=== PATIENT | male | born 1960 | race Hispanic/Latino ===

== ENCOUNTER 2019-12-25 21:58 | Inpatient (IN) | payer MEDICARE ==
[~2019-12-25] VITALS: Ht 175.3 cm; Wt 95.4 kg
[~2019-12-25 21:58] MED LIST: LEVOFLOXACIN250 MG PO; PREDNISONE20 MG PO
[2019-12-25] MEDS ORDERED: ACETAMINOPHEN 325 MG TAB PO ONE (22:15)
[2019-12-25 22:23] LABS: BASOPHILS % 0.2 % (0.0-1.0); EOSINOPHILS # (AUTO) 0.2 (0.0-0.4); EOSINOPHILS % 1.2 % (0.0-6.0); HEMATOCRIT 45.4 % (38.2-49.6); HEMOGLOBIN 15.1 g/dL (14.0-18.0); LYMPHOCYTES # (AUTO) 1.7 (1.0-3.2); LYMPHOCYTES % 10.7 % (18.0-39.1); MEAN CORPUSCULAR HEMOGLOBIN 28.5 pg (28-32); MEAN CORPUSCULAR HGB CONC 33.3 g/dL (31-35); MEAN CORPUSCULAR VOLUME 85.7 fL (81-99); MONOCYTES # (AUTO) 0.9 (0.2-0.8); MONOCYTES % 5.3 % (4.4-11.3); NEUTROPHILS # (AUTO) 13.2 (2.1-6.9); NEUTROPHILS % 81.9 % (38.7-80.0); PLATELET COUNT 290 x10e3/uL (140-360)
--- NOTE | 2019-12-25 22:25 | Emergency Department Note ---
History of Present Illnes History of Present Illness Chief Complaint: COVID PUI History of Present Illness This is a 59 year old male Chief Complaint Comment 59 Y/O MALE PT AAOX3 PRESENTS TO THE ER C/O SOB, FEVER/CHILLS, COUGH AND MIDSTERNAL CP ONSET LAST TUESDAY; PT TESTED POSITIVE FOR COVID ON 12/08/19; LAST DOSE OF TYLENOL AT 0845 THIS AM; PT'S DAUGHTER STATES PT HAS BEEN HAVING DIFFICULTY TALKING IN COMPLETE SENTENCES D/T SOB; PT UZBEK SPEAKING ONLY; DAUGHTER REPORTS SPO2 AT HOME 92- 93% RA. Historian: Patient Arrival Mode: Car History limited by: language barrier In Home Nanny Required: Yes Onset (how long ago): week(s) (2) Location: Lungs Quality: SoB Radiation: Reports non-radiation Severity: moderate Onset quality: gradual Duration (how long): week(s) (2) Timing of current episode: constant Progression: worsening Chronicity: new Context: Reports recent illness (COVID); Denies recent surgery Relieving factors: none Exacerbating factors: none Associated symptoms: Reports denies other symptoms, Reports cough, Reports fever/chills Treatments prior to arrival: none Past Medical/Family History Physician Review I have reviewed the patient's past medical and family history. Any updates have been documented here. Past Medical History Recent Fever: Yes Clinical Suspicion of Infectio: Yes New/Unexplained Change in Ment: No Past Medical History: Hypertension, Diabetes, Hyperlipedemia Other Surgery: LT ARM SX Review of Systems Review of Systems Constitutional: Reports no symptoms EENTM: Reports no symptoms Cardiovascular: Reports no symptoms Respiratory: Reports as per HPI, Reports cough, Reports dyspnea Gastrointestinal: Reports no symptoms Genitourinary: Reports no symptoms Musculoskeletal: Reports no symptoms Integumentary: Reports no symptoms Neurological: Reports no symptoms Psychological: Reports no symptoms Endocrine: Reports no symptoms Hematological/Lymphatic: Reports no symptoms Physical Exam Related Data Allergies: Coded Allergies: No Known Allergies (Unverified , 12/25/19) Triage Vital Signs Vital Signs Date Time Temp Pulse Resp B/P (MAP) Pulse Ox O2 Delivery O2 Flow Rate FiO2 12/25/19 22:06 103.3 132 28 149/85 95 Room Air Vital signs reviewed: Yes Physical Exam CONSTITUTIONAL Constitutional: Present well-developed, Present well-nourished, Present ill appearing HENT HENT: Present normocephalic, Present atraumatic, Present oropharynx clear/moist, Present nose normal HENT L/R: Present left ext ear normal, Present right ext ear normal EYES Eyes: Reports PERRL, Reports conjunctivae normal NECK Neck: Present ROM normal PULMONARY Pulmonary: Present effort normal, Present breath sounds normal CARDIOVASCULAR Cardiovascular: Present regular rhythm, Present heart sounds normal, Present capillary refill normal, Present normal rate GASTROINTESTINAL Abdominal: Present soft, Present nontender, Present bowel sounds normal GENITOURINARY Genitourinary: Present exam deferred SKIN Skin: Present warm, Present dry MUSCULOSKELETAL Musculoskeletal: Present ROM normal NEUROLOGICAL Neurological: Present alert, Present oriented x 3, Present no gross motor or sensory deficits PSYCHOLOGICAL Psychological: Present mood/affect normal, Present judgement normal Results Laboratory Lab results reviewed: Yes Imaging Imaging results reviewed: Yes Diagnostics Tests Diagnostic test(s) reviewed: Yes Procedures 12 Lead ECG Interpretation ECG Interpretation : In Home Nanny: Interpreted by ED physician Date: Dec 25, 2019 Rhythm: sinus tachycardia QRS axis: normal ST segments normal: Yes T waves normal: Yes Clinical Impression: non-specific ECG Assessment & Plan Medical Decision Making MDM 59-year-old male presents for shortness of breath and cough. He is recently diagnosed with COVID-19. Symptoms of been worsening over the last week and a half. Examination shows moderate tachycardia, tachypnea, fever to 103. Initial differential includes Crohn virus versus pneumonia versus other viral upper respiratory infection. Suspect worsening coronavirus infection and do not suspect sepsis at this time. He was given. Antibiotic treatment with Rocephin and azithromycin as well as 10 mg of Decadron. He was discussed with Dr. Hager who is agreed to admit for COVID 19. Patient is appropriate for transfer to floor. 1L NS given as well. Reassessment Reassessment time: 23:44 Reassessment VS improved after 1L NS Assessment & Plan Final Impression: (1) COVID-19 Depart Disposition: ADMITTED Last Vital Signs Date Time Temp Pulse Resp B/P (MAP) Pulse Ox O2 Delivery O2 Flow Rate FiO2 12/25/19 22:06 103.3 132 28 149/85 95 Room Air Medications in the ED Acetaminophen 975 mg ONCE ONCE PO ; Start 12/25/19 at 22:15; Stop 12/25/19 at 22:17; Status DC LIMA LOTT MD Dec 25, 2019 22:24
[2019-12-25] MEDS ORDERED: DEXAMETHASONE SOD PHOS 10 MG/1 ML VIAL IV ONE (22:30)
[2019-12-25] MEDS ORDERED: SODIUM CHLORIDE 0.9% 1000ML 1,000 ML IV ONE (22:30)
[2019-12-25 22:34] LABS: INR 0.94
[2019-12-25 22:35] LABS: PARTIAL THROMBOPLASTIN TIME 27.5 seconds (23.8-35.5)
[2019-12-25 22:42] LABS: ALANINE AMINOTRANSFERASE 74 IU/L (0-55); ALBUMIN 4.5 g/dL (3.5-5.0); ALBUMIN/GLOBULIN RATIO 1.3 (0.8-2.0); ALKALINE PHOSPHATASE 84 IU/L (40-150); ANION GAP 17.8 mmol/L (8-16); BLOOD UREA NITROGEN 12 mg/dL (7-26); BUN/CREATININE RATIO 11 (6-25); CALCIUM 8.4 mg/dL (8.4-10.2); CARBON DIOXIDE 25 mmol/L (22-29); CHLORIDE 98 mmol/L (98-107); CREATINE KINASE 164 IU/L (30-200); CREATININE, SERUM 1.05 mg/dL (0.72-1.25); EST GLOMERULAR FILTRATION RATE > 60 ML/MIN (60-); GLUCOSE 156 mg/dL (74-118); POTASSIUM 3.8 mmol/L (3.5-5.1); SODIUM 137 mmol/L (136-145)
--- NOTE | 2019-12-25 22:44 | NUR ---
FEEDER ASSOCIATE AT BEDSIDE OR PORTABLE CXR.
[2019-12-25 22:46] LABS: BILIRUBIN,URINE NEGATIVE (NEGATIVE); CLARITY,URINE SL CLOUDY (CLEAR); COLOR,URINE YELLOW (YELLOW); KETONES,URINE TRACE (NEGATIVE); LEUKOCYTE ESTERASE ,URINE NEGATIVE (NEGATIVE); NITRITE,URINE NEGATIVE (NEGATIVE); PROTEIN,URINE DIPSTICK 1+ (NEGATIVE); URINE UROBILINOGEN 1 mg/dL (0.2 - 1)
[2019-12-25 22:56] LABS: BACTERIA,URINE FEW /HPF; EPITHELIAL CELLS,URINE FEW /LPF; RBC,URINE 0-5 /HPF (0-5); WBC,URINE (MAN) 0-5 /HPF (0-5)
[2019-12-25] MEDS ORDERED: AZITHROMYCIN 500MG/NS 250 ML 250 ML IV STA (23:07)
[2019-12-25] MEDS ORDERED: CEFTRIAXONE SOD 1 GM/NS 50 ML 50 ML IV ONE (23:15)
--- NOTE | 2019-12-25 23:49 | Diagnostic Imaging Report ---
EXAMINATION: CHEST SINGLE (PORTABLE) INDICATION: ^Y ^SOB ^[id number] ^[id number] COMPARISON: None FINDINGS: AP view TUBES and LINES: None. LUNGS: Lungs are well inflated. Left lower lung field airspace opacities. Mild central vascular congestion. PLEURA: No pleural effusion or pneumothorax. HEART AND MEDIASTINUM: The cardiomediastinal silhouette is enlarged. Aorta is tortuous. BONES AND SOFT TISSUES: No acute osseous lesion. Soft tissues are unremarkable. UPPER ABDOMEN: No free air under the diaphragm. IMPRESSION: Left lower lung field airspace opacities, concerning for developing pneumonia. Signed by: Dr. Elder Smith MD on 12/25/2019 11:46 PM
[2019-12-26] VITALS (10 sets, daily range): BP systolic 127–140; BP diastolic 67–97
--- NOTE | 2019-12-26 00:54 | NUR ---
Patient arrived to unit from ER via stretcher, respirations even and unlabored on 2L NC. Patient awake and resting in bed, no s/s of distress at this time. Tele showing SR in 90s. O2 extension tubing provided d/t SOB on exertion when ambulating to restroom. Bed locked and in lowest position, HOB in semi-Lim's position, side rails upx2, call light placed within reach. Patient instructed to call for assistance if needed, verbalized understanding. All safety measures in place.
--- NOTE | 2019-12-26 01:03 | NUR ---
Per patient okay to contact daughters and share medical information. Spoke to daughter Tyson on phone. Provided updates on patient's status and obtained list of home medications.
[2019-12-26] MEDS ORDERED: ASPIRIN81 MG PO (01:09)
[2019-12-26] MEDS ORDERED: LO-DOSE ASPIRIN81 MG PO (01:11)
[2019-12-26] MEDS ORDERED: CRESTOR10 MG PO (01:16)
[2019-12-26] MEDS ORDERED: VITAMIN C1000 MG PO (01:16)
[2019-12-26] MEDS ORDERED: METFORMIN HCL500 M1 PO (01:16)
[2019-12-26] MEDS ORDERED: VITAMIN D350 MCG PO (01:16)
[2019-12-26] MEDS ORDERED: Levalbuterol INH (01:16)
[2019-12-26] MEDS ORDERED: OLMESARTAN MEDOX5 MG PO (01:16)
[2019-12-26 04:54] LABS: BASOPHILS % 0.2 % (0.0-1.0); HEMATOCRIT 43.9 % (38.2-49.6); HEMOGLOBIN 14.5 g/dL (14.0-18.0); LYMPHOCYTES % 6.3 % (18.0-39.1); MEAN CORPUSCULAR HEMOGLOBIN 28.4 pg (28-32); MEAN CORPUSCULAR VOLUME 86.1 fL (81-99); MONOCYTES # (AUTO) 0.2 (0.2-0.8); MONOCYTES % 1.3 % (4.4-11.3); NEUTROPHILS # (AUTO) 14.6 (2.1-6.9); NEUTROPHILS % 91.4 % (38.7-80.0); PLATELET COUNT 301 x10e3/uL (140-360)
[2019-12-26 05:11] LABS: ANION GAP 17.5 mmol/L (8-16); BLOOD UREA NITROGEN 12 mg/dL (7-26); BUN/CREATININE RATIO 13 (6-25); CALCIUM 8.1 mg/dL (8.4-10.2); CARBON DIOXIDE 22 mmol/L (22-29); CHLORIDE 103 mmol/L (98-107); CREATININE, SERUM 0.94 mg/dL (0.72-1.25); EST GLOMERULAR FILTRATION RATE > 60 ML/MIN (60-); GLUCOSE 188 mg/dL (74-118); POTASSIUM 4.5 mmol/L (3.5-5.1); SODIUM 138 mmol/L (136-145)
--- NOTE | 2019-12-26 06:17 | NUR ---
Routine consult called to Dr. Argueta's answering service (Crystal).
[2019-12-26] MEDS ORDERED: OLMESARTAN MEDOXOMIL 5 MG TABLET PO SCH (09:00)
[2019-12-26] MEDS ORDERED: DEXAMETHASONE 4 MG TAB PO SCH ×2 (09:00)
--- NOTE | 2019-12-26 09:03 | NUR ---
INFECTIOUS DISEASE CONSULT NOTE DR. JOSÉ SARGENT HPI: This is a very pleasant 59 year old male with a PMH of HTN, Obesity, T2DM, and HLD. The patient was first symptomatic with COVID on 12/14. The patient went to his family doctor who gave him Levaquin and steroids. The patient subsequently became worse and arrived to the ED. He was admitted with COVID. He was slightly hypoxic, so he was placed on 2LPM n/c ROS: +Fatigue +SOB ALL SYSTEMS REVIEWED AND NOTED UNLESS DOCUMENTED. PMH: per HPI Past Surgical hx: per chart Social Hx: denies smoker, drinking PHYSICAL EXAM: VS per chart GENERAL: awake, alert, pleasant HEENT: normocephalic, atraumatic CV: s1 s2 without s3, s4 CHEST: rhonchi, wheezing ABD: soft, non-tender EXT: moves all, no joint swelling NEURO: alert, awake, no abnormalities LABS: reviewed RADIOLOGY: reviewed IMPRESSION: COVID 19 PNA Hypoxia T2DM HTN Obesity HLD PLAN: RMSV, COVID protocol Get CTA Decadron 6mg x10 days diabetic control RMSV was discussed, the risks and benefits were explained. The pt understands that it is a drug approved by the FDA for emergency use. The patient agreed to the terms and conditions. All questions were answered and handout was given
[2019-12-26] MEDS ORDERED: ZOLPIDEM TARTRATE 5 MG TAB PO PRN (10:30)
[2019-12-26] MEDS ORDERED: ACETAMINOPHEN 325 MG TAB PO PRN ×2 (10:30)
[2019-12-26 10:35] LABS: MAGNESIUM 1.7 MG/DL (1.3-2.1); PHOSPHORUS 3.2 MG/DL (2.3-4.7)
[2019-12-26 10:45] LABS: CALCIUM IONIZED 1.1 mmol/L (1.09-1.30)
[2019-12-26] MEDS ORDERED: IOPAMIDOL 370 MG/ML 200 ML INFUS..BTL INJ ONE (10:56)
[2019-12-26] MEDS ORDERED: SODIUM CHLORIDE 0.9% 50ML 50 ML ONE (10:56)
--- NOTE | 2019-12-26 11:17 | Consultation ---
DATE OF CONSULTATION: Pulmonary Critical Care Consultation CHIEF COMPLAINT: Fevers and some chest discomfort. HISTORY OF PRESENT ILLNESS: The patient is a 59-year-old man. He has a history of diabetes, but does not require insulin. About 12 days ago, he started having malaise and sinus congestion. He had some fevers as well. He improved, but then started to worsen again several days ago. He noted some recurrent fever and cough. He also had some atypical chest pain. PAST SURGICAL HISTORY: Status post accident to the left arm that required surgical repair. PAST MEDICAL HISTORY: 1. Diabetes. 2. Hypertension. 3. Hypercholesterolemia. SOCIAL HISTORY: The patient's daughter works at our hospital as a nurse. He is not an active smoker or drinker. FAMILY HISTORY: Noncontributory. ALLERGIES: NO KNOWN DRUG ALLERGIES. REVIEW OF SYSTEMS: The patient did have some fevers. He has no headache. He has no neck pain. He is not complaining of any chest pain. He has some dyspnea. He has no abdominal pain. There is no nausea or vomiting. He has no leg swelling. PHYSICAL EXAMINATION: VITAL SIGNS: The blood pressure is 127/87, saturation is 98% on 2 L and the pulse is 85. Respiratory rate is 18. HEENT: Shows no facial swelling or erythema. LYMPHATIC: Shows no submandibular, cervical, or supraclavicular adenopathy. CARDIAC: Reveals a regular rate and rhythm with normal S1 and S2. LUNGS: Auscultation of lungs reveals rhonchorous breath sounds bilaterally. There is no wheezing. ABDOMEN: Soft and nontender. There is no rebound or guarding. EXTREMITIES: Shows no leg edema or calf tenderness. There is no cyanosis or clubbing. SKIN: Shows no rashes. NEUROLOGICAL: Shows no focal abnormalities. LABORATORY DATA: White blood cell count is 15.9, hemoglobin is 14.5, and the platelet count is 301. BUN to creatinine ratio is normal. The other electrolytes are within normal limits. RADIOGRAPHIC DATA: Shows lower left lung opacities concerning for developing pneumonia. IMPRESSION: 1. COVID-19 and viral pneumonia. 2. Diabetes. 3. Hypertension. PLAN: 1. Continue Rocephin and Zithromax. 2. The patient will be started on remdesivir. 3. Await CT scan of chest with PE protocol. 4. Tylenol as needed. 5. Cough suppressants as needed. MD KEISHA Perez/RUDY /[id number]
--- NOTE | 2019-12-26 12:10 | NUR ---
Infectious disease consultation Patient seen and examined chart reviewed and discussed with the medical team This is a very pleasant 59 male with obesity and diabetes mellitus Comes in with fever and chills and shortness of breath Fevers and some chest discomfort. HISTORY OF PRESENT ILLNESS: The patient is a 59-year-old man. He has a history of diabetes, but does not require insulin. About 12 days ago, he started having malaise and sinus congestion. He had some fevers as well. He improved, but then started to worsen again several days ago. He noted some recurrent fever and cough. He also had some atypical chest pain. PAST SURGICAL HISTORY: Status post accident to the left arm that required surgical repair. PAST MEDICAL HISTORY: 1. Diabetes. 2. Hypertension. 3. Hypercholesterolemia. SOCIAL HISTORY: The patient's daughter works at our hospital as a nurse. He is not an active smoker or drinker. FAMILY HISTORY: Noncontributory. ALLERGIES: NO KNOWN DRUG ALLERGIES. REVIEW OF SYSTEMS:otherwise negative The patient did have some fevers. He has no headache. He has no neck pain. He is not complaining of any chest pain. He has some dyspnea. He has no abdominal pain. There is no nausea or vomiting. He has no leg swelling. PHYSICAL EXAMINATION: VITAL SIGNS: The blood pressure is 127/87, saturation is 98% on 2 L and the pulse is 85. Respiratory rate is 18. HEENT: Shows no facial swelling or erythema. LYMPHATIC: Shows no submandibular, cervical, or supraclavicular adenopathy. CARDIAC: Reveals a regular rate and rhythm with normal S1 and S2. LUNGS: Auscultation of lungs reveals rhonchorous breath sounds bilaterally. There is no wheezing. ABDOMEN: Soft and nontender. There is no rebound or guarding. EXTREMITIES: Shows no leg edema or calf tenderness. There is no cyanosis or clubbing. SKIN: Shows no rashes. NEUROLOGICAL: Shows no focal abnormalities. LABORATORY DATA: White blood cell count is 15.9, hemoglobin is 14.5, and the platelet count is 301. BUN to creatinine ratio is normal. The other electrolytes are within normal limits. RADIOGRAPHIC DATA: Shows lower left lung opacities concerning for developing pneumonia. IMPRESSION: 1. COVID-19 and viral pneumonia. 2. Diabetes. 3. Hypertension. Rocephin 1 g daily 5 days azithromycin 500 mg daily for 3 days dexamethasone 6 mg daily for 10 days Lovenox subcu discussed with the patient and the family [facility] still experimental drug fax was given but the patient still willing to take it is aware he can stop at any time
[2019-12-26] MEDS ORDERED: SODIUM CHLORIDE 0.9% 1000ML 1,000 ML ONE (12:32)
[2019-12-26] MEDS: METFORMIN HCL 500 MG TAB CR PO SCH (12:51)
[2019-12-26] MEDS: DEXAMETHASONE 4 MG TAB PO SCH (12:51)
[2019-12-26] MEDS: OLMESARTAN MEDOXOMIL 5 MG TABLET PO SCH (12:51)
--- NOTE | 2019-12-26 13:07 | Diagnostic Imaging Report ---
EXAM: CT Chest WITH contrast- Pulmonary Embolism Protocol INDICATION: Shortness of breath COMPARISON: Chest radiograph 12/25/2019 TECHNIQUE: Chest was scanned utilizing a multidetector helical scanner from the lung apex through the level of the diaphragm after administration of IV contrast. Thin section reconstructions were obtained with special concentration on the pulmonary arteries. Coronal and sagittal reformations were obtained. Pulmonary embolism protocol was performed. IV CONTRAST: 100 cc of Isovue 370 RADIATION DOSE: Total DLP: 415 mGy*cm Dose modulation, iterative reconstruction, and/or weight based adjustment of the mA/kV was utilized to reduce the radiation dose to as low as reasonably achievable. COMPLICATIONS: None FINDINGS: Images are substantially degraded by patient coughing and respiratory motion artifact. LINES/ TUBES: None. PULMONARY ARTERIES: The main pulmonary artery and right and left main pulmonary arteries are well-opacified and demonstrate no filling defects to suggest pulmonary embolism. Evaluation of the segmental and subsegmental pulmonary arteries is severely limited by patient respiratory motion artifact. An apparent filling defect in the posterior segment left upper lobe pulmonary artery may represent a segmental pulmonary embolus. The main pulmonary artery is not enlarged and measures up to 2.2 cm. No right heart strain. LUNGS AND AIRWAYS: The central airways are patent. Bilateral multifocal areas of groundglass and interstitial opacities in a predominantly lower lung and peripheral distribution. Mild bilateral lower lobe dependent subsegmental atelectasis. PLEURA: The pleural spaces are clear. HEART AND MEDIASTINUM: The thyroid gland is normal. No mediastinal, hilar or axillary lymphadenopathy. The heart is normal in size.. There is no pericardial effusion. UPPER ABDOMEN: No acute findings in the upper abdomen. BONES: No acute osseous injury. No suspicious lytic or blastic lesions. SOFT TISSUES: Unremarkable. IMPRESSION: No large central pulmonary embolism. Evaluation of the segmental and subsegmental pulmonary arteries is severely limited by patient respiratory motion artifact and coughing. An apparent filling defect in the posterior segment left upper lobe pulmonary artery may represent a small segmental pulmonary embolus versus artifact. No dilation of the main pulmonary artery. No right heart strain. Multifocal bilateral lower lung and peripheral predominant groundglass opacities and interstitial opacities consistent with provided history of viral pneumonia. Signed by: Mellisa Parsons MD on 12/26/2019 1:04 PM
--- NOTE | 2019-12-26 13:34 | History and Physical ---
HISTORY OF PRESENT ILLNESS: Mr. Garcia is a 59-year-old male with history of diabetes, hypertension, hyperlipidemia, who last week tested positive for COVID. He was having fever and cough and he was given azithromycin. Yesterday apparently, the patient got short of breath and the cough got worse, so they decided to bring him to the emergency room. PAST MEDICAL HISTORY: He has diabetes, hypertension, hyperlipidemia. ALLERGIES: NO KNOWN DRUG ALLERGIES. PAST SURGICAL HISTORY: He had left arm surgery. SOCIAL HISTORY: He lives at home with his family. He does not smoke and he does not drink. PHYSICAL EXAMINATION: VITAL SIGNS: Temperature 97.9, blood pressure 127/87. The patient is on nasal cannula, oxygen is 98, respiratory rate is 18, pulse is 85. LABORATORY DATA: On the blood work, white count is 15.92, hemoglobin 14.5, hematocrit 43.9, potassium 4.5, creatinine is 0.94, glucose is 188. Lactic acid went down to 1.6. COVID test came back positive. Urine cultures and blood cultures are pending. Chest x-ray shows left lower lung field airspace opacity concerning for pneumonia. ASSESSMENT: 1. COVID positive. 2. COVID pneumonia. 3. Diabetes type 2 with hyperglycemia. 4. Hypertension. 5. Hyperlipidemia. PLAN: At the present time is the patient was admitted in the COVID unit. He already was seen by Dr. Argueta. He was started on azithromycin, Rocephin and remdesivir He is also on Lovenox 60 mg subcu daily, and he is on dexamethasone 6 mg p.o. daily. We will continue to monitor respiratory status. Pulmonary consult with Dr. Cantu was also placed for him. All this was discussed in detail with the daughter and the patient. All questions were answered to satisfaction. MD CLARK Ball/MODL /[id number]
[2019-12-26] MEDS ORDERED: REMDESIVIR 200MG/NS 100ML 200 MG in SODIUM CHLORIDE 0.9% 100 ML 100 ML IV ONE (14:00)
[2019-12-26] MEDS: ENOXAPARIN SOD INJ 60 MG/0.6 ML SYR SC SCH (17:37)
[2019-12-26] MEDS: HYDROCODONE/CHLORPHENIRAMINE 5 ML LIQCR PO PRN (18:01)
[2019-12-26] MEDS: CRESTOR 10MG PO SCH (20:19)
[2019-12-26] MEDS ORDERED: CRESTOR 10MG PO SCH (21:00)
[2019-12-26] MEDS: AZITHROMYCIN 500MG/NS 250 ML 250 ML IV SCH (23:27)
[2019-12-27] VITALS (7 sets, daily range): BP systolic 119–141; BP diastolic 84–94
[2019-12-27] MEDS: CEFTRIAXONE SOD 2 GM/NS 100 ML 100 ML IV SCH ×2 (00:23→22:06)
[2019-12-27] MEDS: HYDROCODONE/CHLORPHENIRAMINE 5 ML LIQCR PO PRN (05:27)
[2019-12-27] MEDS: METFORMIN HCL 500 MG TAB CR PO SCH (08:47)
[2019-12-27] MEDS: DEXAMETHASONE 4 MG TAB PO SCH (08:47)
[2019-12-27] MEDS: OLMESARTAN MEDOXOMIL 5 MG TABLET PO SCH (08:47)
--- NOTE | 2019-12-27 11:03 | Progress Note ---
DATE: SUBJECTIVE: The patient feels better. He still has some cough and some dyspnea with exertion. He is receiving remdesivir. PHYSICAL EXAMINATION: VITAL SIGNS: The patient is afebrile. The blood pressure is 119/84 and saturation is 96% on 2 L. The pulse is 60. HEENT: Shows no facial swelling or erythema. LYMPHATIC: Shows no submandibular, cervical, or supraclavicular adenopathy. CARDIAC: Reveals regular rate and rhythm with normal S1 and S2. LUNGS: Auscultation of lungs reveals rhonchorous breath sounds bilaterally. There is no wheezing. ABDOMEN: Soft and nontender. There is no rebound or guarding. EXTREMITIES: Show no leg edema or calf tenderness. There is no cyanosis or clubbing. SKIN: Shows no rashes. NEUROLOGICAL: Shows no focal abnormalities. LABORATORY DATA: The BUN to creatinine ratio is 12 to 0.94, and the other electrolytes are within normal limits. White blood cell count is 15.9, hemoglobin is 14.5, and the platelet count is 301. IMPRESSION: 1. COVID-19 and viral pneumonia. 2. Diabetes. 3. Hypertension. PLAN: 1. Complete remdesivir. 2. Continue current antibiotics. 3. Cough suppressant as needed. Ran Cantu MD Ifeoma/RUDY /[id number]
--- NOTE | 2019-12-27 12:24 | Progress Note ---
DATE: 12/27/2019 SUBJECTIVE: Mr. Enriquez is a 59-year-old man with history of diabetes, hypertension, hyperlipidemia, came to the emergency room after 12 days history of nasal congestion and cough that was treated as a sinus infection and allergies and then the patient developed fever, cough, and a family member was COVID positive, so he decided to come to the emergency room where he was found to have multifocal pneumonia and he is COVID positive. PHYSICAL EXAMINATION: GENERAL: Today, the patient states he is feeling better. He is on O2 nasal cannula. VITAL SIGNS: Temperature is 97.5, blood pressure 119/84, O2 saturation 96%, respiratory rate 18, heart rate is 60. The patient is still short of breath, but he is feeling better than yesterday. LABORATORY DATA: On the blood work, white count is 15.92, hemoglobin is 14.4, hematocrit is 43.9. COVID came back positive. Urine culture and blood culture so far negative. Chest CT showed multifocal bilateral lower lung, peripheral ground glass opacities. ASSESSMENT: 1. COVID positive. 2. COVID pneumonia. 3. Diabetes type 2 with hyperglycemia. 4. Hypertension. 5. Hyperlipidemia. PLAN: At the present time, the patient remains in COVID unit. Infectious Disease and Pulmonary are following the patient. He is on dexamethasone, metformin, Rocephin, azithromycin, Crestor, Lovenox, remdesivir, zolpidem and acetaminophen. Continue present treatment. The overall prognosis of the patient remains guarded. All this was discussed with the patient. All questions were answered to satisfaction. MD CLARK Ball/RUDY /[id number]
[2019-12-27] MEDS: REMDESIVIR 100MG/NS 100ML 100 MG in SODIUM CHLORIDE 0.9% 100 ML 100 ML IV SCH (16:01)
[2019-12-27] MEDS: ENOXAPARIN SOD INJ 60 MG/0.6 ML SYR SC SCH (17:36)
--- NOTE | 2019-12-27 20:03 | Progress Note ---
DATE: SUBJECTIVE: The patient is seen and evaluated. Available labs and notes reviewed. Discussed with Dr. Argueta. REVIEW OF SYSTEMS: Still with some cough and chest discomfort, but no diarrhea. Appetite is good. No shortness of breath. PHYSICAL EXAMINATION: VITAL SIGNS: Temperature 97.8, pulse 94, respiration 19, and blood pressure 137/91. GENERAL: Alert and oriented, pleasant, no acute distress. Supine position. Few coughs during my visit with him. CV: S1 and S2. CHEST: Equal expansion. Decreased breath sounds. A few crackles expiratory. ABDOMEN: Soft, obese, and nontender. HEENT: Moist. No pallor. No JVD. The patient is currently on room air. MEDICATIONS: Reviewed. From ID point of view, the patient is on remdesivir, dexamethasone, Rocephin, Zithromax, and Lovenox. LABORATORY STUDIES: White count of 15.92, improved from 16.14, hemoglobin 14.5, and platelet 301. Sodium 138, potassium 4.5, and creatinine 0.94. Serology; coronavirus 12/25 was detected on the PCR. MICROBIOLOGY: Blood and urine culture negative on 12/24. RADIOLOGY STUDIES: CT of the chest on 12/25, showed multifocal bilateral lower lung and peripheral predominant ground-glass opacities and interstitial opacities, consistent with the provided history of viral pneumonia. ASSESSMENT AND PLAN: 1. COVID-19 and viral pneumonia. 2. Diabetes. 3. Hypertension. 4. Obesity. 5. Continue with antibiotics as planned dictated on 12/26/[address] Argueta, which is Rocephin 1 g daily for 5 days, Zithromax 500 mg IV 3 days, dexamethasone 6 mg daily for 10 days, and Lovenox subcutaneous as ordered. The patient was also educated on remdesivir and started on remdesivir. Continue with the treatment, monitor the patient clinically and follow up with the labs. Please refer to chart for more information. The patient is on room air. Dictated by Daniel Tinsley PA-C (Al) [place] Argueta MD /MODL /[id number]
[2019-12-27] MEDS: CRESTOR 10MG PO SCH (20:11)
[2019-12-27] MEDS: AZITHROMYCIN 500MG/NS 250 ML 250 ML IV SCH (23:13)
[2019-12-28] VITALS (12 sets, daily range): BP systolic 110–132; BP diastolic 78–93
--- NOTE | 2019-12-28 06:49 | NUR ---
REPORT GIVEN TO DAYSHIFT NURSE. ALERT AND ORIENTED. RESTING IN BED. NO SIGNS IV INFILTRATION. SR UPX2. BED LOCKED AND IN LOW POSITION. CALL LIGHT WITHIN REACH.
[2019-12-28] MEDS: HYDROCODONE/CHLORPHENIRAMINE 5 ML LIQCR PO PRN (08:02)
[2019-12-28] MEDS: DEXAMETHASONE 4 MG TAB PO SCH (08:10)
[2019-12-28] MEDS: OLMESARTAN MEDOXOMIL 5 MG TABLET PO SCH (08:10)
[2019-12-28] MEDS: METFORMIN HCL 500 MG TAB CR PO SCH (08:10)
--- NOTE | 2019-12-28 10:00 | Progress Note ---
DATE: 12/28/2019 SUBJECTIVE: Mr. Enriquez is a 59-year-old man with history of diabetes, hypertension, hyperlipidemia, and complaining of several days of nasal congestion and cough. He was exposed to COVID then he started developing more cough and shortness of breath, so he decided to come to the emergency room. He was found to have a cough with pneumonia. He is on IV antibiotics and antivirals. PHYSICAL EXAMINATION: GENERAL: The patient states this morning he had a lot of cough, and he was short of breath. VITAL SIGNS: Temperature 98.2, blood pressure 123/93, O2 saturation 94, respiratory rate 18, and pulse is 60. LABORATORY DATA: On the blood work, white count is 15.92, hemoglobin 14.5, hematocrit 43.9, potassium 4.3, sugar 188. COVID came back positive. Urine culture and blood culture so far have been negative. Chest CT shows no large central pulmonary embolus, but he has multifocal bilateral lower lung and peripheral ground-glass opacities. ASSESSMENT: 1. coronavirus disease infection. 2. coronavirus disease pneumonia. 3. Diabetes type 2 with hyperglycemia. 4. Hypertension. 5. Hyperlipidemia. PLAN: At present time is to continue to observe him. He is on IV antibiotics and remdesivir. He is also on Crestor and Lovenox. Continue present management. Continue to monitor respiratory status. Prognosis remains guarded. He is also on ADA diet and sliding scale with insulin. All this was discussed with the patient. All questions were answered to satisfaction. MD CLARK Ball/MODL /[id number]
--- NOTE | 2019-12-28 13:46 | NUR ---
INFECTIOUS DISEASE PROGRESS NOTE DR. JOSÉ SARGENT SUBJECTIVE: The patient is seen and evaluated. Available labs and notes reviewed. Discussed with Dr. Sargent. REVIEW OF SYSTEMS: Still with some cough and chest discomfort Appetite is good. No shortness of breath. ALL 14 POINT ROS NEG UNLESS OTHERWISE NOTED PHYSICAL EXAMINATION: VITAL SIGNS: Temperature 97.8, pulse 94, respiration 19, and blood pressure 137/91. GENERAL: Alert and oriented, pleasant, no acute distress. Supine position. Few coughs during my visit with him. CV: S1 and S2. without s3, s4 CHEST: Equal expansion. Decreased breath sounds. A few crackles expiratory. ABDOMEN: Soft, obese, and nontender. HEENT: Moist. No pallor. No JVD. The patient is currently on room air MEDICATIONS: Reviewed. From ID point of view, the patient is on remdesivir, dexamethasone, Rocephin, Zithromax, and Lovenox. LABORATORY STUDIES: reviewed MICROBIOLOGY: Blood and urine culture negative on 12/24. RADIOLOGY STUDIES: CT of the chest on 12/25, showed multifocal bilateral lower lung and peripheral predominant ground-glass opacities and interstitial opacities, consistent with the provided history of viral pneumonia. ASSESSMENT AND PLAN: 1. COVID-19 and viral pneumonia. 2. Diabetes. 3. Hypertension. 4. Obesity. Rocephin 1 g daily for 5 days Zithromax 500 mg IV 3 days dexamethasone 6 mg daily for 10 days Lovenox subcutaneous RMSV oxygen as needed Barbie Robert MSN, INFORMATION RESOURCES DIRECTOR, AGACNP- José Sargent M.D.
[2019-12-28] MEDS: REMDESIVIR 100MG/NS 100ML 100 MG in SODIUM CHLORIDE 0.9% 100 ML 100 ML IV SCH (13:59)
--- NOTE | 2019-12-28 14:05 | Progress Note ---
DATE: SUBJECTIVE: The patient still has some cough. He is receiving remdesivir. PHYSICAL EXAMINATION: VITAL SIGNS: The patient is afebrile. The blood pressure is 119/90 and saturation is 99% on room air. HEENT: Shows no facial swelling or erythema. LYMPHATIC: Shows no submandibular, cervical, or supraclavicular adenopathy. CARDIAC: Reveals regular rate and rhythm with normal S1 and S2. LUNGS: Auscultation of lungs reveals rhonchi bilaterally. There is no wheezing. ABDOMEN: Soft and nontender. There is no rebound or guarding. EXTREMITIES: Show no leg edema or calf tenderness. There is no cyanosis or clubbing. SKIN: Shows no rashes. LABORATORY DATA: White blood cell count is 15.9, hemoglobin is 14.5, and the platelet count is 301. The BUN to creatinine ratio is 12 to 0.94. The other electrolytes are within normal limits. IMPRESSION: 1. COVID-19 and viral pneumonia. 2. Diabetes. 3. Hypertension. PLAN: 1. Complete remdesivir. 2. Continue Tussionex as needed. 3. Complete current antibiotics. 4. Monitor and control blood sugars. Ran Cantu MD [facility]/RUDY /[id number]
[2019-12-28] MEDS ORDERED: ALBUTEROL SULFATE HFA 8GM INHALATION AEROSOL INH PRN (14:30)
[2019-12-28 14:39] LABS: BASOPHILS % 0.2 % (0.0-1.0); EOSINOPHILS # (AUTO) 1.3 (0.0-0.4); EOSINOPHILS % 7.2 % (0.0-6.0); HEMOGLOBIN 15.6 g/dL (14.0-18.0); LYMPHOCYTES # (AUTO) 1.3 (1.0-3.2); MEAN CORPUSCULAR HEMOGLOBIN 29.1 pg (28-32); MEAN CORPUSCULAR HGB CONC 33.9 g/dL (31-35); MEAN CORPUSCULAR VOLUME 85.7 fL (81-99); MONOCYTES # (AUTO) 0.7 (0.2-0.8); MONOCYTES % 3.7 % (4.4-11.3); NEUTROPHILS # (AUTO) 14.8 (2.1-6.9); PLATELET COUNT 358 x10e3/uL (140-360); RED BLOOD COUNT 5.37 x10e6/uL (4.3-5.7)
[2019-12-28] MEDS: BENZONATATE 100 MG CAP PO SCH ×2 (14:42→20:11)
[2019-12-28 14:59] LABS: ALANINE AMINOTRANSFERASE 96 IU/L (0-55); ALBUMIN 4.2 g/dL (3.5-5.0); ALBUMIN/GLOBULIN RATIO 1.2 (0.8-2.0); ALKALINE PHOSPHATASE 86 IU/L (40-150); ANION GAP 21.1 mmol/L (8-16); BLOOD UREA NITROGEN 24 mg/dL (7-26); BUN/CREATININE RATIO 22 (6-25); CALCIUM 8.6 mg/dL (8.4-10.2); CARBON DIOXIDE 21 mmol/L (22-29); CHLORIDE 99 mmol/L (98-107); CREATININE, SERUM 1.08 mg/dL (0.72-1.25); EST GLOMERULAR FILTRATION RATE > 60 ML/MIN (60-); GLUCOSE 154 mg/dL (74-118); POTASSIUM 4.1 mmol/L (3.5-5.1); SODIUM 137 mmol/L (136-145)
[2019-12-28] MEDS: ENOXAPARIN SOD INJ 60 MG/0.6 ML SYR SC SCH (17:53)
[2019-12-28 19:36] LABS: LYMPHOCYTES % (MANUAL) 1 % (19-48); MONOCYTES % (MANUAL) 3 % (3.4-9.0); NEUTROPHILS % (MANUAL) 96 % (40-74)
[2019-12-28 19:37] LABS: PLATELET ESTIMATE ADEQUATE; PLATELET MORPHOLOGY COMMENT NORMAL; RBC MORPHOLOGY COMMENT NORMAL
[2019-12-28] MEDS: CRESTOR 10MG PO SCH (20:11)
--- NOTE | 2019-12-28 21:50 | NUR ---
MOVED PATIENT TO NEW ROOM. ALL PERSONAL BELONGINGS GATHERED BY PATIENT. ESCORTED BY RN AND PCT VIA WHEELCHAIR. ALERT AND ORIENTED. RESTING IN BED. BED LOCKED AND IN LOW POSITION. CALL LIGHT WITHIN REACH. SR UPX2.
[2019-12-28] MEDS: CEFTRIAXONE SOD 2 GM/NS 100 ML 100 ML IV SCH (22:34)
[2019-12-28] MEDS ORDERED: SODIUM CHLORIDE 0.9% 250ML 250 ML ONE (22:39)
[2019-12-28] MEDS: AZITHROMYCIN 500MG/NS 250 ML 250 ML IV SCH (23:36)
[2019-12-29] VITALS (7 sets, daily range): BP systolic 110–126; BP diastolic 78–92
[2019-12-29] MEDS: HYDROCODONE/CHLORPHENIRAMINE 5 ML LIQCR PO PRN ×2 (03:47→23:00)
--- NOTE | 2019-12-29 07:10 | NUR ---
REPORT GIVEN TO DAYSHIFT NURSE. ALERT AND RESTING IN BED. NO SIGNS IV INFILTRATION. BED LOCKED AND IN LOW POSITION. SR UPX2. CALL LIGHT WITHIN REACH.
--- NOTE | 2019-12-29 07:11 | NUR ---
BEDSIDE SHIFT REPORT RECEIVED FROM PM NURSE. PT IN STABLE CONDITION.
[2019-12-29] MEDS: METFORMIN HCL 500 MG TAB CR PO SCH (09:03)
[2019-12-29] MEDS: OLMESARTAN MEDOXOMIL 5 MG TABLET PO SCH (09:03)
[2019-12-29] MEDS: DEXAMETHASONE 4 MG TAB PO SCH (09:03)
[2019-12-29] MEDS: BENZONATATE 100 MG CAP PO SCH ×3 (09:03→20:45)
--- NOTE | 2019-12-29 13:30 | NUR ---
pt c/o pain to her "kidneys"; paging Attending MD for orders.
[2019-12-29] MEDS: REMDESIVIR 100MG/NS 100ML 100 MG in SODIUM CHLORIDE 0.9% 100 ML 100 ML IV SCH (13:54)
[2019-12-29] MEDS: ENOXAPARIN SOD INJ 60 MG/0.6 ML SYR SC SCH (16:57)
--- NOTE | 2019-12-29 17:30 | Progress Note ---
DATE: SUBJECTIVE: The patient still has some cough and congestion. He is off oxygen and is afebrile. PHYSICAL EXAMINATION: VITAL SIGNS: Blood pressure is 118/86, saturation is 97% on 2 L, and the pulse is 83. HEENT: Shows no facial swelling or erythema. LYMPHATIC: Shows no submandibular, cervical, or supraclavicular adenopathy. CARDIAC: Reveals regular rate and rhythm with normal S1, S2. LUNGS: Auscultation of lungs reveals decreased breath sounds bilaterally. There is no wheezing. ABDOMEN: Soft and nontender. There is no rebound or guarding. IMPRESSION: 1. COVID-19 and viral pneumonia. 2. Diabetes. 3. Hypertension. PLAN: 1. Complete remdesivir tomorrow. 2. Repeat CMP and CBC tomorrow morning. 3. Continue Lovenox for DVT prophylaxis. 4. Continue cough suppressants as needed. Ran Cantu MD [facility]/RUDY /[id number]
--- NOTE | 2019-12-29 17:35 | Progress Note ---
DATE: SUBJECTIVE: The patient is seen and evaluated. Available labs and notes reviewed. REVIEW OF SYSTEMS: Improved to resolved shortness of breath. The patient still with some cough. Appetite is good. No diarrhea. Pain is controlled. Denied headache. PHYSICAL EXAMINATION: VITAL SIGNS: Temperature 98.8, pulse 83, respiration 20, and blood pressure 118/86. GENERAL: Awake and alert. No acute distress. CV: S1, S2. CHEST: Equal expansion, improved rales. ABDOMEN: Soft, obese, nontender. HEENT: Moist. No pallor. No JVD. EXTREMITIES: Moves all. No significant edema. The patient is currently on room air. MEDICATIONS: Reviewed. From ID point of view, the patient is on dexamethasone, Zithromax, Rocephin, remdesivir and Lovenox. LABORATORY STUDIES: No new CBC or BMP available. MICROBIOLOGY: Blood culture negative 72 hours. Urine cultures negative 48 hours. IMAGING: No new radiology studies available. \ ASSESSMENT AND PLAN: 1. COVID-19 and viral pneumonia. 2. Superimposed bacterial pneumonia. 3. Diabetes. 4. Hypertension. 5. Obesity. 6. Continue with antibiotics and remdesivir as mentioned above, continue with Lovenox and dexamethasone. The patient currently on room air, improving cough. No shortness of breath. Continue to monitor the patient clinically. Follow with the labs. The patient may be discharged soon after completion of remdesivir. Please refer to chart for more information. This was discussed with Dr. Argueta in details. Dictated by Daniel Tinsley PA-C (Al) [place] Argueta MD /MODL /[id number]
[2019-12-29] MEDS: CRESTOR 10MG PO SCH (20:45)
[2019-12-29] MEDS: CEFTRIAXONE SOD 2 GM/NS 100 ML 100 ML IV SCH (23:00)
[2019-12-29] MEDS: AZITHROMYCIN 500MG/NS 250 ML 250 ML IV SCH (23:59)
--- NOTE | 2019-12-30 01:44 | NUR ---
PT RESTING COMFORTABLY IN BED NO SIGNS OF DISTRESS NO COMPLAINTS AT THIS TIME
[2019-12-30 04:36] VITALS: BP 133/99
[2019-12-30 06:17] LABS: BASOPHILS # (AUTO) 0.1 (0.0-0.1); BASOPHILS % 0.4 % (0.0-1.0); HEMATOCRIT 44.9 % (38.2-49.6); HEMOGLOBIN 14.8 g/dL (14.0-18.0); LYMPHOCYTES # (AUTO) 1.5 (1.0-3.2); MEAN CORPUSCULAR HEMOGLOBIN 28.5 pg (28-32); MEAN CORPUSCULAR VOLUME 86.5 fL (81-99); MONOCYTES # (AUTO) 0.9 (0.2-0.8); MONOCYTES % 6.4 % (4.4-11.3); NEUTROPHILS # (AUTO) 11.4 (2.1-6.9); NEUTROPHILS % 79.1 % (38.7-80.0); PLATELET COUNT 408 x10e3/uL (140-360); RED BLOOD COUNT 5.19 x10e6/uL (4.3-5.7)
[2019-12-30 06:35] LABS: ALANINE AMINOTRANSFERASE 89 IU/L (0-55); ALBUMIN/GLOBULIN RATIO 1.3 (0.8-2.0); ALKALINE PHOSPHATASE 82 IU/L (40-150); BLOOD UREA NITROGEN 19 mg/dL (7-26); BUN/CREATININE RATIO 21 (6-25); CALCIUM 8.5 mg/dL (8.4-10.2); CARBON DIOXIDE 28 mmol/L (22-29); CHLORIDE 99 mmol/L (98-107); CREATININE, SERUM 0.92 mg/dL (0.72-1.25); EST GLOMERULAR FILTRATION RATE > 60 ML/MIN (60-); GLUCOSE 155 mg/dL (74-118); SODIUM 137 mmol/L (136-145)
--- NOTE | 2019-12-30 07:02 | NUR ---
BEDSIDE SHIFT REPORT RECEIVED FROM PM NURSE. PT IN STABLE CONDITION.
[2019-12-30 08:04] VITALS: BP 133/99
[2019-12-30 08:10] VITALS: BP 136/95
[2019-12-30] MEDS: BENZONATATE 100 MG CAP PO SCH (08:45)
[2019-12-30] MEDS: METFORMIN HCL 500 MG TAB CR PO SCH (08:45)
[2019-12-30] MEDS: OLMESARTAN MEDOXOMIL 5 MG TABLET PO SCH (08:46)
[2019-12-30] MEDS: DEXAMETHASONE 4 MG TAB PO SCH (08:47)
[2019-12-30 12:34] VITALS: BP 128/89
--- NOTE | 2019-12-30 13:18 | Progress Note ---
DATE: SUBJECTIVE: Mr. Enriquez is feeling much better. He is not short of breath. REVIEW OF SYSTEMS: Totally negative at this time. He want to go home. His review of systems is otherwise unremarkable. PHYSICAL EXAMINATION: GENERAL: He is currently alert and oriented. VITAL SIGNS: Stable, currently afebrile. HEENT: He is not icteric. NECK: Supple. CHEST: Clear. HEART: S1 and S2. ABDOMEN: Soft. Bowel sounds present. EXTREMITIES: No edema. SKIN: No rash. IMPRESSION: 1. COVID-19, improving. The patient will be discharged home. He does not need anything at present time. 2. Bacterial pneumonia. Finish course of antibiotic. 3. Diabetes. 4. Hypertension. 5. From Infectious Disease point of view, the patient is infectious for 3 weeks there is no need to recheck PCR. Follow up with me in 3 weeks. MD [facility]/RUDY /[id number]
[2019-12-30] MEDS: REMDESIVIR 100MG/NS 100ML 100 MG in SODIUM CHLORIDE 0.9% 100 ML 100 ML IV SCH (13:33)
--- NOTE | 2019-12-30 13:53 | Progress Note ---
DATE: SUBJECTIVE: The patient feels better. He is coughing less. Today is his final day of remdesivir. PHYSICAL EXAMINATION: VITAL SIGNS: Blood pressure is 128/89, saturation is 98% and the pulse is 87. HEENT: Shows no facial swelling or erythema. LYMPHATIC: Shows no submandibular, cervical, or supraclavicular adenopathy. CARDIAC: Reveals regular rate and rhythm with normal S1 and S2. LUNGS: Auscultation of lungs reveals rhonchorous breath sounds bilaterally. There is no wheezing. ABDOMEN: Soft, nontender. There is no rebound or guarding. EXTREMITIES: Shows no leg edema or calf tenderness. There is no cyanosis or clubbing. SKIN: Shows no rashes. IMPRESSION: 1. Viral pneumonia and coronavirus disease-2019 infection. 2. Diabetes. 3. Hypertension. PLAN: 1. Complete remdesivir. 2. Discharge home. 3. Complete Decadron as outpatient. 4. Follow up in 2 weeks. Ran Cantu MD [facility]/DIAZL /[id number]
--- OUTSIDE RECORDS SUMMARY | 2019-12-30 15:25 | XMS REPORT | Continuity of Care Document ---
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 Family History Family Member Diagnosis Comments Start Date Stop Date Source Natural brother Diabetes [facility] Natural brother Hypertension [facility] Natural brother Lipids [facility] Natural brother Stroke [facility] Natural father Cancer [facility] Natural mother Arthritis [facility] Natural mother Diabetes [facility] Natural mother Hypertension [facility] Natural sister Cancer [facility] Social History Social Habit Start Date Stop Date Quantity Comments Source Sex Assigned At [facility] Alcohol intake 2018-09-06 00:00:2018-09-06 00:00:00 Current non-drinker of alcohol (finding) [facility] History SDOH Food Worry 2016-10-29 00:00:00 2016-10-29 00:00:00 3 [facility] History SDOH Food Scarcity 2016-10-29 00:00:00 2016-10-29 00:00:00 3 [facility] Alcohol Comment 2013-04-14 00:00:00 2013-04-14 00:00:00 quit alc ohol 15 years ago [facility] Smoking Status Start Date Stop Date Source Never smoker [facility] Medications Ordered Medication Name Filled Medication Name Start Date Stop Da te Current Medication? Ordering Clinician Indication Dosage Frequency Signature (SIG) Comments Components Source pregabalin (LYRICA) 50 mg capsule 2017-07-22 00:00:00 Yes Left upper arm injury, sequela 50mg Take 1 capsule by mouth 3 times daily. [facility] ibuprofen (MOTRIN) 800 mg tablet 2017-07-22 00:00:00 Yes Arthralgia of left wrist 800mg Take 1 tablet by mouth every 8 hours as needed for Pain. [facility] ergocalciferol (VITAMIN D2) 50,000 unit capsule 2017-07-22 0 0:00:00 Yes Fatty liver 40606W Take 1 capsule by mouth weekly. [facility] azelastine (OPTIVAR) 0.05 % ophthalmic solution 2017-07-22 0 0:00:00 Yes Allergic conjunctivitis, unspecified laterality 1[drp] Q.5D Instill 1 Drop in each eye 2 times daily. [facility] cetirizine (ZYRTEC) 10 mg tablet 2017-07-22 00:00:00 Yes Seasonal allergic rhinitis due to pollen 10mg QD Take 1 tablet by mouth daily. [facility] ibuprofen (MOTRIN) 400 mg tablet 2017-01-07 00:00:00 Yes Left arm pain 400mg Take 1 tablet by mouth every 8 hours as needed for Wojciech n. [facility] atorvastatin (LIPITOR) 20 mg tablet 2016-03-09 00:00:00 Yes Mixed hyperlipidemia 20mg Take 1 tablet by mouth at bedtime nightly. [facility] busPIRone (BUSPAR) 10 mg tablet 2016-01-27 00:00:00 Yes Anxiety 10mg Take 1 tablet by mouth 3 times daily. [facility] loratadine (CLARITIN) 10 mg tablet 2015-11-17 00:00:00 Yes Other seasonal allergic rhinitis 10mg QD Take 1 tablet by mouth daily. [facility] acetaminophen-codeine (TYLENOL/CODEINE #3) 300-30 mg per tab let 2015-11-05 00:00:00 Yes Injury of left ulnar nerve a t wrist, subsequent encounter 1{tbl} Take 1 tablet by mouth every 4 hours as needed for Wojciech n. [facility] atorvastatin (LIPITOR) 80 mg tablet 2015-09-29 00:00:00 Yes Mixed hyperlipidemia 80mg Take 1 tablet by mouth at bedtime nightly. [facility] beclomethasone (BECONASE AQ) 42 mcg (0.042 %) nasal spray 2013-06-30 00:00:00 Yes Allergic rhinitis, cause unspecified 2{spray} Q.5D Use 2 Sprays in each nostril 2 times daily Dose is for each nostril.. [facility] ketoconazole (NIZORAL) 2 % topical cream 2012-10-20 00:00:00 Yes Tinea QD Apply to affected area daily. APPLY TO AFFECTED AREA OF SKIN EV MARC DAY [facility] hydrocortisone (ANUSOL-HC) 25 mg rectal suppository 07-25 00:00:00 Yes Unspecified hemorrhoids without mention of complication 25mg Q.5D Insert 1 Suppository by rectum 2 times daily. [facility] docusate sodium (COLACE) 100 mg capsule 2011-07-26 00:00:00 Yes Unspecified constipation 100mg Q.5D Take 1 capsule by mouth 2 times d aily. [facility] Omeprazole 40 mg capsule 2011-02-02 00:00:00 Yes GERD (gastroesophageal reflux disease) 40mg QD Take 1 Cap by mouth daily. [facility] Immunizations Ordered Immunization Name Filled Immunization Name Date Status Comments Source Influenza, Injectable, Quadrivalent 2017-01-07 00:00:00 Co mpleted [facility] Influenza Vaccine 2016-01-27 00:00:00 Completed [facility] Influenza Vaccine 2015-04-29 00:00:00 Completed [facility] Influenza Vaccine 2011-02-02 00:00:00 Completed [facility] Influenza Vaccine 2007-01-06 00:00:00 Completed [facility] Td Tetanus, diphtheria Toxoids Vaccine 2007-01-06 00:00:00 Completed [facility] Procedures This patient has no known procedures. Plan of Care Planned Activity Planned Date Details Comments Source Future Scheduled Test 2017-10-06 00:00:00 Screening for roman gnant neoplasm of colon (procedure) [code = [id number]] [facility] Encounters Start Date/Time End Date/Time Encounter Type Admission Type Attendi [facility] Care Department Encounter ID Source 2017-11-21 00:00:00 2017-11-21 00:00:00 Outpatient [facility] [id number] [facility] 2017-09-28 00:00:00 2017-09-28 00:00:00 Outpatient [facility] [id number] [facility] 2017-09-27 00:00:00 2017-09-27 00:00:00 Outpatient [facility] [id number] [facility] 2017-07-22 13:44:51 2017-07-22 13:44:51 Outpatient [facility] [id number] [facility] 2017-07-22 13:36:14 2017-07-22 13:36:14 Outpatient [facility] [id number] [facility] 2017-07-22 12:22:46 2017-07-22 12:22:46 Outpatient [facility] [id number] [facility] 2017-01-27 00:00:00 2017-01-27 00:00:00 Outpatient [facility] [id number] [facility] 2017-01-10 00:00:00 2017-01-10 00:00:00 Outpatient [facility] [id number] [facility] 2017-01-07 09:40:42 2017-01-07 09:40:42 Outpatient [facility] [id number] [facility] 2016-12-24 00:00:00 2016-12-24 00:00:00 Outpatient [facility] [id number] [facility] 2016-12-23 00:00:00 2016-12-23 00:00:00 Outpatient [facility] [id number] [facility] 2016-11-22 00:00:00 2016-11-22 00:00:00 Outpatient [facility] [id number] [facility] 2016-11-22 00:00:00 2016-11-22 00:00:00 Outpatient [facility] [id number] [facility] 2016-11-19 00:00:00 2016-11-19 00:00:00 Outpatient [facility] [id number] [facility] 2016-11-16 00:00:00 2016-11-16 00:00:00 Outpatient [facility] [id number] [facility] 2016-10-29 08:12:07 2016-10-29 08:12:07 Outpatient [facility] [id number] [facility] 2016-10-08 00:00:00 2016-10-08 00:00:00 Outpatient [facility] [id number] [facility] 2016-10-06 11:19:44 2016-10-06 11:19:44 Outpatient [facility] [id number] [facility] 2016-10-01 11:09:26 2016-10-01 11:09:26 Outpatient [facility] [id number] [facility] 2016-10-01 09:35:26 2016-10-01 09:35:26 Outpatient [facility] [id number] [facility] Results Test Description Test Time Test Comments Results Result Comments Source CT CHEST W 2019-12-26 12:54:00 [place] [address] Patient Name: MIKY ENRIQUEZ MR #: [id number] : 1960 Age/Sex: 59/M Req #: [id number] [facility] Physician: JUANITA TINAJERO MD Ordered by: ANTONINO CHIANG GORE CUTTER Report #: [id number] Location: [facility] Room/Bed: [place] [address] Procedure: [id number] CT/CT CHEST W Exam Date: 12/26/19 Exam Time: 1121 REPORT STATUS: Signed EXAM: CT Chest WITH contrast- Pulmonary Embolism Protocol INDICATION: Shortness of breath COMPARISON: Chest radiograph 12/25/2019 TECHNIQUE: Chest was scanned utilizing a multidetector helical scanner from the lung apex through the level of the diaphragm after administration of IV contrast. Thin section reconstructions were obtained with special concentration on the pulmonary arteries. Coronal and sagittal reformations were obtained. Pulmonary embolism protocol was performed. IV CONTRAST: 100 cc of Isovue 370 RADIATION DOSE: Total DLP: 415 mGy*cm Dose modulation, iterative reconstruction, and/or weight based adjustment of the mA/kV was utilized to reduce the radiation dose to as low as reasonably achievable. COMPLICATIONS: None FINDINGS: Images are substantially degraded by patient coughing and respiratory motion artifact. LINES/ TUBES: None. PULMONARY ARTERIES: The main pulmonary artery and right and left main pulmonary arteries are well- opacified and demonstrate no filling defects to suggest pulmonary embolism. Evaluation of the segmental and subsegmental pulmonary arteries is severely limited by patient respiratory motion artifact. An apparent filling defect in the posterior segment left upper lobe pulmonary artery may represent a segmental pulmonary embolus. The main pulmonary artery is not enlarged and measures up to 2.2 cm. No right heart strain. LUNGS AND AIRWAYS: The central airways are patent. Bilateral multifocal areas of groundglass and interstitial opacities in a predominantly lower lung and peripheral distribution. Mild bilateral lower lobe dependent subsegmental atelectasis. PLEURA: The pleural spaces are clear. HEART AND MEDIASTINUM: The thyroid gland is normal. No mediastinal, hilar or axillary lymphadenopathy. The heart is normal in size.. There is no pericardial effusion. UPPER ABDOMEN: No acute findings in the upper abdomen. BONES: No acute osseous injury. No suspicious lytic or blastic lesions. SOFT TISSUES: Unremarkable. IMPRESSION: No large central pulmonary embolism. Evaluation of the segmental and subsegmental pulmonary arteries is severely limited by patient respiratory motion artifact and coughing. An apparent filling defect in the posterior segment left upper lobe pulmonary artery may represent a small segmental pulmonary embolus versus artifact. No dilation of the main pulmonary artery. No right heart strain. Multifocal bilateral lower lung and peripheral predominant groundglass opacities and interstitial opacities consistent with provided history of viral pneumonia. Signed by: Alex Waldrop MD on 12/26/2019 1:04 PM Dictated By: ALEX WALDROP MD 1304 Transcribed By: THA on 12/26/19 1304 COPY TO: ANTONINO CHIANG NP CHEST SINGLE (PORTABLE) 2019-12-25 23:45:00 [place] [address] Patient Name: MIKY ENRIQUEZ MR #: [id number] : 1960 Age/Sex: 59/M Req #: [id number] [facility] Physician: JUANITA TINAJERO MD Ordered by: Lima Canales MD Report #: [id number] Location: [facility] Room/Bed: [place] [address] Procedure: [id number] DX/CHEST SINGLE (PORTABLE) Exam Date: 12/25/19 Exam Time: 2229 REPORT STATUS: Signed EXAMINATION: CHEST SINGLE (PORTABLE) INDICATION: Y SOB [id number] COMPARISON: None FINDINGS: AP view TUBES and LINES: None. LUNGS: Lungs are well inflated. Left lower lung field airspace opacities. Mild central vascular congestion. PLEURA: No pleural effusion or pneumothorax. HEART AND MEDIASTINUM: The cardiomediastinal silhouette is enlarged. Aorta is tortuous. BONES AND SOFT TISSUES: No acute osseous lesion. Soft tissues are unremarkable. UPPER ABDOMEN: No free air under the diaphragm. IMPRESSION: Left lower lung field airspace opacities, concerning for developing pneumonia. Signed by: Dr. Elder Brito MD on 12/25/2019 11:46 PM Dictated By: ELDER BRITO MD 45 Transcribed By: THA on 12/25/192345 COPY TO: LIMA CANALES MD
--- OUTSIDE RECORDS SUMMARY | 2019-12-30 15:25 | XMS REPORT | Clinical Summary ---
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 1 (gastroesophageal reflux disease) Active hydrocortisone Insert 1 28 3 (ANUSOL-HC) 25 mg rectal Suppository Suppository 2 suppositoryIndications: by rectum 2 Unspecified hemorrhoids times daily. without mention of complication Active docusate sodium (COLACE) Take 1 120 capsule 1 0 100 mg capsule by 2 capsuleIndications: mouth 2 times Unspecified hemorrhoids daily. without mention of complication, Unspecified constipation Active ketoconazole (NIZORAL) 2 Apply to 90 g 1 0 % topical affected area 3 creamIndications: Tinea daily. APPLY TO AFFECTED AREA OF SKIN EVERY DAY Active beclomethasone (BECONASE Use 2 Sprays 25 g 3 AQ) 42 mcg (0.042 %) in each 4 nasal sprayIndications: nostril 2 Allergic rhinitis, cause times daily unspecified Dose is for each nostril.. Active atorvastatin (LIPITOR) 80 Take 1 tablet 90 tablet 3 mg tabletIndications: by mouth at 6 Mixed hyperlipidemia bedtime nightly. Active acetaminophen-codeine Take 1 tablet 60 tablet 0 (TYLENOL/CODEINE #3) by mouth 6 300-30 mg per every 4 hours tabletIndications: Injury as needed for of left ulnar nerve at Pain. wrist, subsequent encounter Active loratadine (CLARITIN) 10 Take 1 tablet 90 tablet 3 mg tabletIndications: by mouth 6 Other seasonal allergic daily. rhinitis Active busPIRone (BUSPAR) 10 mg Take 1 tablet 90 tablet 3 tabletIndications: by mouth 3 6 Anxiety times daily. Active atorvastatin (LIPITOR) 20 Take 1 tablet 90 tablet 2 mg tabletIndications: by mouth at 6 Mixed hyperlipidemia bedtime nightly. Active ibuprofen (MOTRIN) 400 mg Take 1 tablet 90 tablet 3 tabletIndications: Left by mouth 7 arm pain every 8 hours as needed for Pain. Active pregabalin (LYRICA) 50 mg Take 1 90 capsule 5 capsuleIndications: capsule by 8 Neuropathy, Left upper mouth 3 times arm injury, sequela daily. Active ibuprofen (MOTRIN) 800 mg Take 1 tablet 90 tablet 5 tabletIndications: by mouth 8 Arthralgia of left wrist every 8 hours as needed for Pain. Active ergocalciferol (VITAMIN Take 1 12 capsule 4 D2) 50,000 unit capsule by 8 capsuleIndications: Fatty mouth weekly. liver Active azelastine (OPTIVAR) 0.05 Instill 1 6 mL 3 % ophthalmic Drop in each 8 solutionIndications: eye 2 times Allergic conjunctivitis, daily. unspecified laterality Active cetirizine (ZYRTEC) 10 mg Take 1 tablet 90 tablet 3 tabletIndications: by mouth 8 Seasonal allergic daily. 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 Hyperlipidemia 11/24/2006 Immunizations Name Administration Dates Next Due Influenza Vaccine 01/27/2016, 04/29/2015, 04/2010, 01/06/2007 Influenza, Injectable, 01/07/2017 Quadrivalent Td Tetanus, diphtheria 01/06/2007 Toxoids Vaccine Family History Medical History Relation Name Comments Diabetes Brother Hypertension Brother Lipids Brother Stroke Brother Stroke Brother Cancer Father prostate Arthritis Mother osteoarthritis Diabetes Mother Hypertension Mother Cancer Sister breast cancer- in r emission Relation Name Status Comments Brother Brother Father Father Mother Mother Alive Sister Social History Date Tobacco Use Types Packs/Day Years Used Never Smoker Smokeless Tobacco: Never Used Tobacco Cessation: Counseling Given: No Drinks/Week oz/Week Comments Alcohol Use quit alcohol 15 year s ago No Food Insecurity Answer Date Recorded Within the past 12 months, you worried that your Often mariam e 10/29/2016 food would run out before you got money to buy more. Within the past 12 months, the food you bought Often true 10/29/2016 just didn't last and you didn't have mo juanita to get more. Sex Assigned at Date Recorded Not on file Industry Job Start Date Occupation Not on file Not on file Not on file Travel End Travel History Travel Start No recent travel history available. Last Filed Vital Signs Not on file Plan of Treatment Health Maintenance Due Date Last Done Comments Colorectal Cancer Scrn 10/06/2017 10/06/2016, Annual (FIT/FOBT) Age 51 02/24/2016 to 76 Goals Goal Patient Associated Recent Progress Patient-Stat Aut hor Goal Type Problems ed? Eat Healthy Lifestyle No Nate Patel Reduce pain Lifestyle No Nate Patel Results Not on fileafter 12/24/2018 Insurance Type Payer Benefit Subscriber ID Effective Phone Address Plan / Dates Group MEDICARE MEDICARE xxxxxxxxxx 2017-P [phone] [id number] [place] [address] [facility] SELF-PAY SELF-PAY xxxxx 2016- [phone] [id number] [place] [address]
--- OUTSIDE RECORDS SUMMARY | 2019-12-30 15:25 | XMS REPORT | Continuity of Care Document ---
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 Disease Active 2015-10-27 00:00:00 [facility] 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 Family History Family Member Diagnosis Comments Start Date Stop Date Source Natural brother Diabetes [facility] Natural brother Hypertension [facility] Natural brother Lipids [facility] Natural brother Stroke [facility] Natural father Cancer [facility] Natural mother Arthritis [facility] Natural mother Diabetes [facility] Natural mother Hypertension [facility] [place]alt Natural sister Cancer [facility] Social History Social Habit Start Date Stop Date Quantity Comments Source Sex Assigned At [facility] Alcohol intake 2018-09-06 00:00:2018-09-06 00:00:00 Current non-drinker of alcohol (finding) [facility] History SDOH Food Worry 2016-10-29 00:00:00 2016-10-29 00:00:00 3 [facility] History SDOH Food Scarcity 2016-10-29 00:00:00 2016-10-29 00:00:00 3 [facility] Alcohol Comment 2013-04-14 00:00:00 2013-04-14 00:00:00 quit alc ohol 15 years ago [facility] Smoking Status Start Date Stop Date Source Never smoker [facility] Medications Ordered Medication Name Filled Medication Name Start Date Stop Da te Current Medication? Ordering Clinician Indication Dosage Frequency Signature (SIG) Comments Components Source pregabalin (LYRICA) 50 mg capsule 2017-07-22 00:00:00 Yes Left upper arm injury, sequela 50mg Take 1 capsule by mouth 3 times daily. [facility] ibuprofen (MOTRIN) 800 mg tablet 2017-07-22 00:00:00 Yes Arthralgia of left wrist 800mg Take 1 tablet by mouth every 8 hours as needed for Pain. [facility] ergocalciferol (VITAMIN D2) 50,000 unit capsule 2017-07-22 0 0:00:00 Yes Fatty liver [id number] Take 1 capsule by mouth weekly. [facility] azelastine (OPTIVAR) 0.05 % ophthalmic solution 2017-07-22 0 0:00:00 Yes Allergic conjunctivitis, unspecified laterality 1[drp] Q.5D Instill 1 Drop in each eye 2 times daily. [facility] cetirizine (ZYRTEC) 10 mg tablet 2017-07-22 00:00:00 Yes Seasonal allergic rhinitis due to pollen 10mg QD Take 1 tablet by mouth daily. [facility] ibuprofen (MOTRIN) 400 mg tablet 2017-01-07 00:00:00 Yes Left arm pain 400mg Take 1 tablet by mouth every 8 hours as needed for Wojciech n. [facility] atorvastatin (LIPITOR) 20 mg tablet 2016-03-09 00:00:00 Yes Mixed hyperlipidemia 20mg Take 1 tablet by mouth at bedtime nightly. [facility] busPIRone (BUSPAR) 10 mg tablet 2016-01-27 00:00:00 Yes Anxiety 10mg Take 1 tablet by mouth 3 times daily. [facility] loratadine (CLARITIN) 10 mg tablet 2015-11-17 00:00:00 Yes Other seasonal allergic rhinitis 10mg QD Take 1 tablet by mouth daily. [facility] acetaminophen-codeine (TYLENOL/CODEINE #3) 300-30 mg per tab let 2015-11-05 00:00:00 Yes Injury of left ulnar nerve a t wrist, subsequent encounter 1{tbl} Take 1 tablet by mouth every 4 hours as needed for Wojciech n. [facility] atorvastatin (LIPITOR) 80 mg tablet 2015-09-29 00:00:00 Yes Mixed hyperlipidemia 80mg Take 1 tablet by mouth at bedtime nightly. [facility] beclomethasone (BECONASE AQ) 42 mcg (0.042 %) nasal spray 2013-06-30 00:00:00 Yes Allergic rhinitis, cause unspecified 2{spray} Q.5D Use 2 Sprays in each nostril 2 times daily Dose is for each nostril.. [facility] ketoconazole (NIZORAL) 2 % topical cream 2012-10-20 00:00:00 Yes Tinea QD Apply to affected area daily. APPLY TO AFFECTED AREA OF SKIN EV MARC DAY [facility] hydrocortisone (ANUSOL-HC) 25 mg rectal suppository 07-25 00:00:00 Yes Unspecified hemorrhoids without mention of complication 25mg Q.5D Insert 1 Suppository by rectum 2 times daily. [facility] docusate sodium (COLACE) 100 mg capsule 2011-07-26 00:00:00 Yes Unspecified constipation 100mg Q.5D Take 1 capsule by mouth 2 times d aily. [facility] Omeprazole 40 mg capsule 2011-02-02 00:00:00 Yes GERD (gastroesophageal reflux disease) 40mg QD Take 1 Cap by mouth daily. [facility] Immunizations Ordered Immunization Name Filled Immunization Name Date Status Comments Source Influenza, Injectable, Quadrivalent 2017-01-07 00:00:00 Co mpleted [facility] Influenza Vaccine 2016-01-27 00:00:00 Completed [facility] Influenza Vaccine 2015-04-29 00:00:00 Completed [facility] Influenza Vaccine 2011-02-02 00:00:00 Completed [facility] Influenza Vaccine 2007-01-06 00:00:00 Completed [facility] Td Tetanus, diphtheria Toxoids Vaccine 2007-01-06 00:00:00 Completed [facility] Procedures This patient has no known procedures. Plan of Care Planned Activity Planned Date Details Comments Source Future Scheduled Test 2017-10-06 00:00:00 Screening for roman gnant neoplasm of colon (procedure) [code = [id number]] [facility] Encounters Start Date/Time End Date/Time Encounter Type Admission Type Attendi [facility] Care Department Encounter ID Source 2017-11-21 00:00:00 2017-11-21 00:00:00 Outpatient [facility] [id number] [facility] 2017-09-28 00:00:00 2017-09-28 00:00:00 Outpatient [facility] [id number] [facility] 2017-09-27 00:00:00 2017-09-27 00:00:00 Outpatient [facility] [id number] [facility] 2017-07-22 13:44:51 2017-07-22 13:44:51 Outpatient [facility] [id number] [facility] 2017-07-22 13:36:14 2017-07-22 13:36:14 Outpatient [facility] [id number] [facility] 2017-07-22 12:22:46 2017-07-22 12:22:46 Outpatient [facility] [id number] [facility] 2017-01-27 00:00:00 2017-01-27 00:00:00 Outpatient [facility] [id number] [facility] 2017-01-10 00:00:00 2017-01-10 00:00:00 Outpatient [facility] [id number] [facility] 2017-01-07 09:40:42 2017-01-07 09:40:42 Outpatient [facility] [id number] [facility] 2016-12-24 00:00:00 2016-12-24 00:00:00 Outpatient [facility] [id number] [facility] 2016-12-23 00:00:00 2016-12-23 00:00:00 Outpatient [facility] [id number] [facility] 2016-11-22 00:00:00 2016-11-22 00:00:00 Outpatient [facility] [id number] [facility] 2016-11-22 00:00:00 2016-11-22 00:00:00 Outpatient [facility] [id number] [facility] 2016-11-19 00:00:00 2016-11-19 00:00:00 Outpatient [facility] [id number] [facility] 2016-11-16 00:00:00 2016-11-16 00:00:00 Outpatient [facility] [id number] [facility] 2016-10-29 08:12:07 2016-10-29 08:12:07 Outpatient [facility] [id number] [facility] 2016-10-08 00:00:00 2016-10-08 00:00:00 Outpatient [facility] [id number] [facility] 2016-10-06 11:19:44 2016-10-06 11:19:44 Outpatient [facility] [id number] [facility] 2016-10-01 11:09:26 2016-10-01 11:09:26 Outpatient [facility] [id number] [facility] 2016-10-01 09:35:26 2016-10-01 09:35:26 Outpatient [facility] [id number] [facility] Results Test Description Test Time Test Comments Results Result Comments Source CT CHEST W 2019-12-26 12:54:00 [place] [address] Patient Name: MIKY ENRIQUEZ MR #: [id number] : 1960 Age/Sex: 59/M Req #: [id number] [facility] Physician: JUANITA TINAJERO MD Ordered by: ANTONINO CHIANG HEARING EXAMINER Report #: [id number] Location: [facility] Room/Bed: [place] [address] Procedure: [id number] CT/CT CHEST W Exam Date: 12/26/19 Exam [...] CHIANG NP CHEST SINGLE (PORTABLE) 2019-12-25 23:45:00 [place] [address] Patient Name: MIKY ENRIQUEZ MR #: [id number] : 1960 Age/Sex: 59/M Req #: [id number] [facility] Physician: JUANITA TINAJERO MD Ordered by: Lima Canales MD Report #: [id number] Location: [facility] Room/Bed: [place] [address] Procedure: [id number] DX/CHEST SINGLE (PORTABLE) Exam Date: 12/25/19 Exam [...]
--- OUTSIDE RECORDS SUMMARY | 2019-12-30 15:25 | XMS REPORT | Clinical Summary ---
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 [place] [address] [facility] SELF-PAY SELF-PAY xxxxx 2016- [phone] [address] [place] [address]
== END 2019-12-30 15:04 | disposition home or self-care (01) | DRG 177 ==
LOC: ER 22:03 → ERHOLD 23:36 → IMCU 12-26 00:54 → MED/SURG3 12-28 23:19
PROVIDERS: ADMIT Internal Medicine; ATTEND Internal Medicine
PROC: 8E0ZXY6 Isolation (ICD-10-PCS; principal; 2019-12-25)
PROC: XW043E5 Introduction of Remdesivir Anti-infective into Central Vein, Percutaneous Approach, New Technology Group 5 (ICD-10-PCS; 2019-12-27)
DX: U07.1 COVID-19 (principal); J12.9 Viral pneumonia, unspecified; J15.9 Unspecified bacterial pneumonia; I10 Essential (primary) hypertension; E78.5 Hyperlipidemia, unspecified; E11.65 Type 2 diabetes mellitus with hyperglycemia; E66.9 Obesity, unspecified; Z68.31 Body mass index [BMI] 31.0-31.9, adult
CPT/HCPCS: 36415; 71045; 71260; 80048; 80053; 81001; 82550; 82553; 82948; 83605; 83735; 84100; 84484; 85025; 85610; 85730; 87040; 87086; 93005; 99251; 99284; J0456; J0696; J1100; J1650; J7030; J7050; Q9967; U0002

== ENCOUNTER → 2020-04-07 | Outpatient (CLI) | payer OTHER ==
[~2020-04-07] MED LIST changes: +ASPIRIN81 MG PO; +COVID-19 VACC, MRNA(MODERNA)/PF 100 MCG/0.5 ML VIAL IM ONE; +CRESTOR10 MG PO; +LO-DOSE ASPIRIN81 MG PO; +Levalbuterol INH; +METFORMIN HCL500 M1 PO; +OLMESARTAN MEDOX5 MG PO; +VITAMIN C1000 MG PO; +VITAMIN D350 MCG PO
== END ==
LOC: VACCPMC 04-06 19:55
DX: Z23 Encounter for immunization (principal); Z20.822 Contact with and (suspected) exposure to COVID-19

== ENCOUNTER → 2020-05-09 | Outpatient (CLI) | payer OTHER, MEDICARE | END | DRG 951 | LOC: VACCPMC 09:40 | DX: Z23 Encounter for immunization (principal); Z20.822 Contact with and (suspected) exposure to COVID-19 | CPT/HCPCS: 0012A; 91301 ==